=== PATIENT | female | born 1970 | race Caucasian/White ===

== ENCOUNTER 2022-10-17 09:00 | Outpatient (RCR) | payer MEDICAID, SELFPAY | END 2023-02-14 23:59 | disposition home or self-care (01) | PROVIDERS: PCP Family Medicine; Visit Provider Family Medicine | DX: M18.0 Bilateral primary osteoarthritis of first carpometacarpal joints (principal); Z51.89 Encounter for other specified aftercare | CPT/HCPCS: 97035; 97110; 97140; 97165; 97535; L3806; X5282 ==

== ENCOUNTER 2024-07-10 07:57 | Outpatient (CLI) | payer MEDICAID, SELFPAY ==
--- NOTE | 2024-07-10 08:15 | CRLHL7_ITS ---
For Patients: As a result of the Century Cures Act, medical imaging exams and procedure reports are released immediately into your electronic medical record. You may view this report before your referring provider. If you have questions, please contact your health care provider. INDICATION: GERD. Dysphagia. FINDINGS: An esophagram shows normal distention and mucosal detail of the esophagus. Normal transit of contrast through the esophagus and into the stomach. Small hiatal hernia. No abnormalities of the hypopharynx identified. Mild gastroesophageal reflux. IMPRESSION: 1. Small hiatal hernia. Mild gastroesophageal reflux. Dictated by Sanjeev Lama MD @ 07/11/2024 8:13:02 AM (Electronically Signed)
== END 2024-07-10 07:58 | disposition home or self-care (01) ==
LOC: RAD 07:59
PROVIDERS: Visit Provider Internal Medicine Gastroenterology
DX: R13.10 Dysphagia, unspecified (principal); K44.9 Diaphragmatic hernia without obstruction or gangrene; K21.9 Gastro-esophageal reflux disease without esophagitis
CPT/HCPCS: 74221